=== PATIENT | female | born 1945 | race Two or more races ===

== ENCOUNTER 2023-10-30 08:24 | Outpatient (CLI) | payer OTHER | END 2023-10-30 08:25 | disposition home or self-care (01) | LOC: NUCLEAR 08:24 | PROVIDERS: ATTEND Psychiatry & Neurology Clinical Neurophysiology | DX: R55 Syncope and collapse (principal) ==

== ENCOUNTER 2024-12-31 08:20 | Outpatient (CLI) | payer OTHER | END 2024-12-31 08:22 | disposition home or self-care (01) | LOC: NUCLEAR 08:20 | PROVIDERS: ATTEND Psychiatry & Neurology Clinical Neurophysiology | DX: G31.84 Mild cognitive impairment of uncertain or unknown etiology (principal) | CPT/HCPCS: 78803; A9557 ==